=== PATIENT | male | born 1965 | race African-American/Black ===

== ENCOUNTER 2019-02-12 14:16 | Emergency (ER) | payer MEDICAID ==
[~2019-02-12] VITALS: Ht 195.6 cm; Wt 89.4 kg
[2019-02-12 14:25] VITALS: BP 129/75
[2019-02-12] MEDS ORDERED: FLUCONAZOLE (100 MG) 100 MG TABLET PO ONE (15:00)
[2019-02-12] MEDS ORDERED: FLUCONAZOLE (100 MG) 100 MG TABLET ONE (15:10)
== END 2019-02-12 15:25 | disposition home or self-care (01) ==
LOC: ER 14:16
DX: L73.9 Follicular disorder, unspecified (principal); Z59.0 Homelessness